=== PATIENT | male | born 1995 | race Caucasian/White ===

== ENCOUNTER 2023-01-09 23:18 | Emergency (ER) | payer OTHER ==
[2023-01-09] MEDS ORDERED: Aspirin 325 MG Tab.EC PO ONE (23:29)
[2023-01-09 23:33] LABS: BASOPHILS ABSOLUTE AUTO 0.04 K/mm3 (0.01-0.08); BASOPHILS PERCENT AUTO 0.3 % (0.1-1.2); EOSINOPHILS ABSOLUTE AUTO 0.13 K/mm3 (0.04-0.54); EOSINOPHILS PERCENT AUTO 1.1 (0.8-7.0); HEMATOCRIT 44.1 % (40.1-51.0); HEMOGLOBIN 14.6 gm/dl (13.7-17.5); IMMATURE GRAN ABSOLUTE AUTO 0.02 K/mm3 (0.00-0.10); IMMATURE GRAN PERCENT AUTO 0.2 % (<=1.0); LYMPHOCYTES ABSOLUTE AUTO 2.96 K/mm3 (1.32-3.57); LYMPHOCYTES PERCENT AUTO 24.2 % (21.8-53.1); MEAN CORPUSCULAR HEMOGLOBIN 28.3 pg (25.7-32.2); MEAN CORPUSCULAR HGB CONC 33.1 g/dl (32.2-35.5); MEAN CORPUSCULAR VOLUME 85.6 fl (79.0-92.2); MEAN PLATELET VOLUME 9.7 fl (9.4-12.3); MONOCYTES ABSOLUTE AUTO 0.66 K/mm3 (0.30-0.82); MONOCYTES PERCENT AUTO 5.4 % (5.3-12.2); NEUTROPHILS ABSOLUTE AUTO 8.44 K/mm3 (1.78-5.38); NEUTROPHILS PERCENT AUTO 68.8 % (34.0-67.9); PLATELET COUNT,PLT 335 K/mm3 (163-337); RED BLOOD CELL COUNT 5.15 M/mm3 (4.63-6.08); WHITE BLOOD CELL COUNT,WBC 12.25 K/mm3 (4.23-9.07)
[2023-01-09 23:52] LABS: INR 1.09; PROTHROMBIN TIME 11.6 SECONDS (9.7-12.0)
[2023-01-09 23:54] LABS: A/G RATIO 1.2 (1-2); ALBUMIN 4.5 g/dl (3.4-5.0); ANION GAP 12.1 (5-15); BILIRUBIN TOTAL 0.5 mg/dL (0.2-1.0); BUN/CREATININE RATIO 17.3 (14-18); CALCIUM 9.3 mg/dL (8.5-10.1); CREATININE 1.1 mg/dL (0.7-1.3); EST CRCL DRUG DOSING (CG) 94.31 mL/min; POTASSIUM,K 4.1 mEq/L (3.5-5.1); PROTEIN TOTAL,TP 8.2 g/dl (6.4-8.2)
[2023-01-09 23:55] LABS: D-DIMER QUANTITATIVE < 0.19 mg/L (0.19-0.50)
== END 2023-01-10 01:39 | disposition home or self-care (01) ==
LOC: JD.ED 23:18
DX: R07.89 Other chest pain (principal); Z88.0 Allergy status to penicillin
CPT/HCPCS: 36415; 71045; 80053; 84484; 85025; 85379; 85610; 93005; 99285; A9270; 93010; 99283